=== PATIENT | female | born 1965 | race Caucasian/White ===

== ENCOUNTER 2020-07-26 20:47 | Emergency (ER) | payer MEDICAID, OTHER, SELFPAY ==
[~2020-07-26] VITALS: Ht 152.4 cm; Wt 72.2 kg
[2020-07-26] MEDS ORDERED: CEPHALEXIN 500 MG CAPSULE ONE (21:26)
[2020-07-26] MEDS ORDERED: LIDOCAINE-MPF 1%, 5ML ONE ×2 (21:26→22:19)
[2020-07-26] MEDS ORDERED: SULFAMETH./TRIMETHOPRIM DS 800MG/160MG TABLET ONE (21:26)
[2020-07-26] MEDS ORDERED: LIDOCAINE 1%, 10ML INFIL ONE ×2 (21:30→22:30)
[2020-07-26] MEDS ORDERED: SULFAMETH./TRIMETHOPRIM DS 800MG/160MG TABLET PO ONE (21:30)
[2020-07-26] MEDS ORDERED: CEPHALEXIN 500 MG CAPSULE PO ONE (21:30)
[2020-07-26] MEDS ORDERED: LIDOCAINE-MPF 1%, 2ML INFIL ONE ×2 (21:30→22:30)
[2020-07-26 21:33] VITALS: BP 176/100
--- NOTE | 2020-07-26 21:43 | NUR ---
EDPA AT BEDSIDE FOR I&D.
[2020-07-26] MEDS ORDERED: BUPIVACAINE 0.25% ONE (22:20)
--- NOTE | 2020-07-26 22:25 | NUR ---
ERPA REQUESTED MORE LIDO AND BUPIVICANE. MEDS GIVEN TO ERPA FOR ADMIN.
[2020-07-26] MEDS ORDERED: BUPIVACAINE 0.25% INFIL ONE (22:30)
--- NOTE | 2020-07-26 22:49 | NUR ---
REPORT GIVEN TO SHADE MORGAN.
--- NOTE | 2020-07-26 22:50 | NUR ---
REPORT FROM DARI MORGAN
[2020-07-26] MEDS ORDERED: BACITRACIN ZINC OINT 500U/GM, 0.9 GM TP ONE (23:00)
[2020-07-26] MEDS ORDERED: NEOSPORIN OINT. PKT 1 PACKET ONE (23:06)
--- NOTE | 2020-07-26 23:21 | NUR ---
Patient given discharge instructions and they have confirmed that they understand the instructions. Patient ambulatory with steady gait.
== END 2020-07-26 23:23 | disposition home or self-care (01) ==
LOC: ED 21:17
DX: L03.011 Cellulitis of right finger (principal); M79.89 Other specified soft tissue disorders; I10 Essential (primary) hypertension; Z87.891 Personal history of nicotine dependence
CPT/HCPCS: 26010; 93005; 99283